=== PATIENT | female | born 2000 | race Caucasian/White ===

== ENCOUNTER 2019-03-31 01:57 | Emergency (ER) | payer BC ==
--- NOTE | 2019-03-31 02:30 | PDOC ---
History of Present Illness - General Stated Complaint: EYE PAIN Time Seen by Provider: 03/31/19 02:30 History Source: Patient Exam Limitations: No Limitations - History of Present Illness Initial Comments: Pt is a 18 yo F, with no significant PMH, who is presenting with complaints of pain to the inside of the L upper eyelid after attempting to take her fake eyelashes off. Pt states she was trying to take her eyelash glue off with a corner of a paper towel, when she thinks she scratched the inside of her L upper lid. Pt denies any trauma or pain to the eye itself, and denies any vision changes/blurry or double vision. Pt wears colored contacts about once per month. Pt denies any recent fevers/chills, headache, vision changes, syncope , chest pain, palpitations, SOB, nausea/vomiting, abdominal pain, urinary symptoms, diarrhea/constipation, or leg swelling. Allergies: NKDA PCP: None Social: Pt denies any cigarette, alcohol, or drug use. Pt denies any recent travel or sick contacts. Surgical: no relevant history. Family: no relevant history. 03/31/19 05:19 Past History - Travel Traveled outside of the country in the last 30 days: No Close contact w/someone who was outside of country & ill: No - Past Medical History Allergies/Adverse Reactions: Allergies Allergy/AdvReac Type Severity Reaction Status Date / Time No Known Allergies Allergy Verified 03/31/19 02:32 Review of Systems - Review of Systems Able to Perform ROS?: Yes Is the patient limited Urdu proficient: No Constitutional: Yes: Weight Stable. No: Chills, Fever, Loss of Appetite, Malaise, Weakness HEENTM: Yes: See HPI, Other (pain to L upper eyelid with eye discharge). No: Eye Pain, Blurred Vision, Tearing, Recent change in vision, Nose Congestion, Throat Pain, Throat Swelling, Mouth Swelling Respiratory: No: Cough, Orthopnea, Shortness of Breath Cardiac (ROS): No: Chest Pain, Edema, Irregular Heart Rate, Lightheadedness, Palpitations, Syncope, Chest Tightness ABD/GI: No: Constipated, Diarrhea, Nausea, Poor Appetite, Poor Fluid Intake, Vomiting : No: Burning, Dysuria, Pain, Urgency Musculoskeletal: No: Back Pain, Joint Pain, Muscle Pain, Muscle Weakness Integumentary: No: Rash Neurological: No: Headache, Numbness, Weakness, Dizziness Psychiatric: No: Sleep Pattern Change, Change in Appetite Endocrine: No: Increased Urine, Change in Weight Hematologic/Lymphatic: No: Anemia, Blood Clots, Easy Bleeding, Easy Bruising All Other Systems: Reviewed and Negative *Physical Exam - Physical Exam Comments: Vitals stable, pt afebrile. Pt in NAD, lying comfortably on the bed, normal body habitus. Pt alert and oriented x3. 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 No midline spinal tenderness, step-offs, or crepitus. Head normocephalic, atraumatic. Eyes PERRLA, EOMI. Small abrasion to inside of L upper eyelid, purulent drainage from L eye. Fluorescein stain showed no corneal uptake. Oropharynx without erythema or exudates, no LAD b/l. No nasal congestion, hearing intact. Clear heart sounds, S1/S2, no JVD, b/l pedal edema, or heart murmur. Clear lung sounds, no respiratory distress, wheezes, crackles, or accessory muscle use. No abdominal or CVA tenderness to palpation, no rebound, no guarding. Abdomen soft, non-distended, and with normoactive bowel sounds. Skin without jaundice or rash. 03/31/19 05:11 Medical Decision Making - Medical Decision Making Pt was seen at bedside, also will be seen by attending Dr. Nye. Pt presenting with complaints of pain to the inside of the L upper eyelid after attempting to take her fake eyelashes off. Pt states she was trying to take her eyelash glue off with a corner of a paper towel, when she thinks she scratched the inside of her L upper lid. Pt denies any trauma or pain to the eye itself, and denies any vision changes/blurry or double vision. Pt denies any recent fevers/chills, headache, vision changes, syncope, chest pain, palpitations, SOB, nausea/ vomiting, abdominal pain, urinary symptoms, diarrhea/constipation, or leg swelling. Provided tetracaine drop before administering fluorescein, which improved her pain. Will continue to reassess pt and monitor for symptomatic improvement. Slit-lamp exam showed no corneal abrasion. Provided polymyxin eye drops. Pt can be discharged to home with follow-up. Pt advised to follow-up with PCP in 1-2 days and has been referred to ophthalmology. Strict return precautions provided with pt understanding. 03/31/19 03:36 03/31/19 05:12 *DC/Admit/Observation/Transfer Diagnosis at time of Disposition: Eyelid abrasion Qualifiers: Encounter type: initial encounter Laterality: left Qualified Code(s): S00.212A - Abrasion of left eyelid and periocular area, initial encounter - Discharge Dispostion Disposition: HOME Condition at time of disposition: Good Decision to Admit order: No - Referrals Referrals: Sanjay Ferro MD [Staff Physician] - - Patient Instructions Printed Discharge Instructions: DI for Conjunctivitis Additional Instructions: You were seen in the ER today for a cut to the inside of your eyelid. Please apply one antibiotic drop to your eye every 3 hours while you are awake, for 7 days. Please follow-up with your primary care doctor and ophthalmology within 1- 2 days to discuss your visit and make sure your symptoms have improved. Please return to the ER if you have any worsening pain, worsening drainage from your eye, development of fevers or chills, loss of consciousness, inability to tolerate food or fluids, or any other concerns. - Post Discharge Activity
[2019-03-31 02:32] VITALS: BP 104/68; PULSE 75; TEMP 98.2; BMI 23.4
[2019-03-31] MEDS ORDERED: FLUORESCEIN NA 1 EA STRIP OD ONE (03:01)
[2019-03-31] MEDS ORDERED: TETRACAINE 0.5% HCL 0.6ML DROPPER.BOTTLE OD ONE (03:05)
[2019-03-31] MEDS ORDERED: TETRACAINE 0.5% OPHTH SOLN 2 ML BOTTLE ONE (03:05)
[2019-03-31] MEDS ORDERED: FLUORESCEIN NA 1 EA STRIP ONE (03:06)
[2019-03-31] MEDS ORDERED: POLYMYXIN B SULFATE/TMP 10 ML OPHTHALMIC SOLUTION OD STA (03:29)
--- NOTE | 2019-03-31 03:32 | PDOC ---
Attending Attestation - Resident Resident Name: Neena Vargas - ED Attending Attestation I have performed the following: I have examined & evaluated the patient, The case was reviewed & discussed with the resident, I agree w/resident's findings & plan, Exceptions are as noted - HPI HPI: 03/31/19 03:26 18 F with no PMH presents to pain to her L inner eyelid and foreign body sensation. Pt states that she was trying to remove false eyelashes when she felt pain in her upper eyelid. Denies any pain in her eyeball. Denies blurred vision. - Physicial Exam PE: 03/31/19 03:31 "GENERAL: Awake, alert, and fully oriented, in no acute distress. HEAD: No signs of trauma EYES: + small abrasion to L upper inner eyelid, PERRLA, EOMI, sclera anicteric, conjunctiva clear ENT: Auricles normal inspection, hearing grossly normal, nares patent, oropharynx clear without exudates. Moist mucosa NECK: Nontender, no stepoffs, Normal ROM, supple, no lymphadenopathy, JVD, or masses LUNGS: Breath sounds equal, clear to auscultation bilaterally. No wheezes, and no crackles HEART: Regular rate and rhythm, normal S1 and S2, no murmurs, rubs or gallops ABDOMEN: Soft, nontender, normoactive bowel sounds. No guarding, no rebound. No masses EXTREMITIES: Normal range of motion, no edema. No clubbing or cyanosis. No cords, erythema, or tenderness NEUROLOGICAL: Cranial nerves II through XII intact. 5/5 strength and sensation in all extremities, Normal speech, normal gait, normal cerebellar function SKIN: Warm, Dry, normal turgor, no rashes or lesions noted. - Medical Decision Making 03/31/19 03:34 18 F with small abrasion to L upper inner eyelid. Fluorescein stain with no uptake on cornea. - Abx drops for prophylaxis Pt is well appearing, with normal vitals. Clinically stable for DC at this time. I discussed the physical exam findings, ancillary test results and final diagnoses with the patient. I answered all of the patient's questions. The patient was satisfied with the care received and felt comfortable with the discharge plan and treatment plan. The patient agrees to follow up with the primary care physician within 24-72 hours.
== END 2019-03-31 04:06 | disposition home or self-care (01) ==
LOC: JER 01:57
DX: S00.212A Abrasion of left eyelid and periocular area, initial encounter (principal); X58.XXXA Exposure to other specified factors, initial encounter; Y93.89 Activity, other specified; Y92.89 Other specified places as the place of occurrence of the external cause
CPT/HCPCS: 99281-25

== ENCOUNTER 2021-09-04 16:33 | Emergency (ER) | payer SELFPAY ==
[2021-09-04 17:05] VITALS: BP 105/63; PULSE 86; TEMP 98.4; BMI 23.6
[2021-09-04 17:10] LABS: HCG,QUALITATIVE URINE Negative
[2021-09-04 17:41] LABS: EPITHELIAL CELLS FEW /hpf
== END 2021-09-04 18:51 | disposition home or self-care (01) ==
LOC: FER 16:33
DX: R10.2 Pelvic and perineal pain (principal)
CPT/HCPCS: 36415; 81003; 81015; 84703; 87491; 87591; 87661; 99283-25

== ENCOUNTER 2021-09-08 20:37 | Emergency (ER) | payer SELFPAY ==
[2021-09-08 20:44] VITALS: BMI 23.6
[2021-09-08 20:59] VITALS: BP 103/62; PULSE 84; TEMP 99.6
[2021-09-08] MEDS ORDERED: DOXYCYCLINE HYCLATE 100 MG CAPSULE PO ONE (21:08)
[2021-09-08] MEDS ORDERED: DOXYCYCLINE HYCLATE 100 MG TABLET PO ONE (21:14)
== END 2021-09-08 21:29 | disposition home or self-care (01) ==
LOC: FER 20:37
PROC: 3E0233Z Introduction of Anti-inflammatory into Muscle, Percutaneous Approach (ICD-10-PCS; principal; 2021-09-08)
DX: A54.9 Gonococcal infection, unspecified (principal)
CPT/HCPCS: 99284-25

== ENCOUNTER 2022-03-09 20:52 | Emergency (ER) | payer OTHER ==
[2022-03-09 21:25] VITALS: BP 98/53; PULSE 79; TEMP 98.3; BMI 23.6
== END 2022-03-09 21:25 | disposition home or self-care (01) ==
LOC: FER 20:52
DX: B37.3 Candidiasis of vulva and vagina (principal)
CPT/HCPCS: 99283-25

== ENCOUNTER 2022-03-11 02:12 | Emergency (ER) | payer OTHER ==
[2022-03-11 02:31] VITALS: BP 102/50; PULSE 96; TEMP 98.1; BMI 24.5
[2022-03-11] MEDS ORDERED: AZITHROMYCIN 500 MG TABLET PO ONE (02:51)
[2022-03-11] MEDS ORDERED: AZITHROMYCIN 500 MG TABLET ONE (02:55)
[2022-03-11] MEDS ORDERED: FLUCONAZOLE 150 MG TABLET PO ONE ×2 (03:00→03:02)
== END 2022-03-11 03:06 | disposition home or self-care (01) ==
LOC: FER 02:12
DX: A74.9 Chlamydial infection, unspecified (principal)
CPT/HCPCS: 99283-25